=== PATIENT | female | born 1970 | race Two or more races ===

== ENCOUNTER 2023-10-27 09:56 | Emergency (ER) | payer BC ==
[~2023-10-27] VITALS: Ht 162.6 cm; Wt 104.1 kg
[2023-10-27 10:24] VITALS: BP 133/89; PULSE 78; TEMP 97.5
[2023-10-27 11:08] VITALS: RESP 16; O2SAT 97
[2023-10-27] MEDS: ALBUTEROL SULF 2.5 MG/0.5ML(0.5%) NEB SOLN NEB ONE (11:08)
[2023-10-27] MEDS: IPRATROPIUM BROM 0.5 MG/2.5ML INH SOL NEB ONE (11:08)
[2023-10-27] MEDS ORDERED: ALBU108A5 IN (11:22)
[2023-10-27] MEDS ORDERED: PRED20TA2 PO (11:22)
[2023-10-27] MEDS ORDERED: AZIT500T66 PO (11:22)
== END 2023-10-27 11:27 | disposition home or self-care (01) ==
LOC: ER 09:56
DX: J20.9 Acute bronchitis, unspecified (principal); Z79.899 Other long term (current) drug therapy
CPT/HCPCS: 71046; 94640; 99283; J7644